=== PATIENT | female | born 1990 | race Hispanic/Latino ===

== ENCOUNTER 2020-12-16 21:46 | Observation (INO) | payer MEDICAID ==
[~2020-12-16] VITALS: Ht 167.6 cm; Wt 78.9 kg
[~2020-12-16 21:46] MED LIST: PREN1TAB80 PO
[2020-12-16 21:52] VITALS: BP 118/76
[2020-12-16 22:07] VITALS: BP 134/85
[2020-12-16 22:08] LABS: APPEARANCE,URINE Cloudy (CLEAR); BILIRUBIN,URINE Negative (NEGATIVE); COLOR,URINE Yellow (YELLOW); GLUCOSE, URINE (UA) Negative (NEGATIVE); KETONES,URINE Negative (NEGATIVE); LEUKOCYTE ESTERASE ,URINE Large (NEGATIVE); NITRATE,URINE Negative (NEGATIVE); OCCULT BLOOD,URINE Trace (NEGATIVE); PROTEIN,URINE Negative (NEGATIVE)
[2020-12-16 22:13] LABS: BACTERIA,URINE Few /HPF (None Seen)
[2020-12-16 22:14] LABS: SQUAMOUS EPITHELIAL CELL,UR Moderate /HPF (0-2)
[2020-12-16 22:16] LABS: AMPHET/METH SCREEN,URINE NEGATIVE (NEGATIVE); BARBITURATE SCREEN, URINE NEGATIVE (NEGATIVE); BENZODIAZEPINES SCREEN,URINE NEGATIVE (NEGATIVE); CANNABINOID SCREEN,URINE NEGATIVE (NEGATIVE); COCAINE SCREEN,URINE NEGATIVE (NEGATIVE); OPIATE SCREEN,URINE NEGATIVE (NEGATIVE); PHENCYCLIDINE SCREEN,URINE NEGATIVE (NEGATIVE)
[2020-12-16] MEDS ORDERED: PREN1TAB80 PO (23:18)
[2020-12-16] MEDS ORDERED: LACTATED RINGERS 1000ML IV SCH (23:30)
== END 2020-12-16 23:21 | disposition home or self-care (01) ==
LOC: EDH 21:46 → LDH 21:47
PROVIDERS: ADMIT Obstetrics & Gynecology; ATTEND Obstetrics & Gynecology
DX: O21.2 Late vomiting of pregnancy (principal); O26.893 Other specified pregnancy related conditions, third trimester; R10.2 Pelvic and perineal pain; Z3A.36 36 weeks gestation of pregnancy
CPT/HCPCS: 80305; 81001; 87088; 96360; G0378